=== PATIENT | male | born 1995 | race Caucasian/White ===

== ENCOUNTER 2019-11-24 09:16 | Emergency (ER) | payer SELFPAY ==
[~2019-11-24] VITALS: Ht 165.1 cm; Wt 62.7 kg
[~2019-11-24 09:16] MED LIST: NO HOME MEDICATIONS; OFLOXACIN 10 ML10 ML OP; ZITHROMAX Z PA250 MG PO
[2019-11-24 09:23] VITALS: BP 131/78
[2019-11-24] MEDS ORDERED: TAMIFLU 75MG75 MG PO (10:36)
[2019-11-24 10:55] VITALS: PULSE 87; TEMP 102.5
== END 2019-11-24 10:55 | disposition home or self-care (01) ==
LOC: COL.ER 09:16
DX: J10.1 Influenza due to other identified influenza virus with other respiratory manifestations (principal); F17.210 Nicotine dependence, cigarettes, uncomplicated

== ENCOUNTER 2021-12-11 00:37 | Emergency (ER) | payer SELFPAY ==
[~2021-12-11] VITALS: Ht 165.1 cm; Wt 59.1 kg
[~2021-12-11 00:37] MED LIST changes: +TAMIFLU 75MG75 MG PO
[2021-12-11] MEDS ORDERED: EPIPEN 2-PAK1 MG/ML IM (02:14)
[2021-12-11 02:29] VITALS: BP 130/81; PULSE 82
== END 2021-12-11 02:43 | disposition home or self-care (01) ==
LOC: COL.ER 00:37
DX: R05.9 Cough, unspecified (principal)
CPT/HCPCS: J0171; J1200; J2060; J2405; J2930; J7030